=== PATIENT | female | born 1980 | race African-American/Black ===

== ENCOUNTER → 2016-02-16 | Outpatient (CLI) | payer OTHER ==
--- NOTE | 2016-02-16 15:36 | KCIC ---
Ultrasound Pelvis Indication:Reason For Study Reason: IRREGULAR MENSES USPELVIC / Spl. Instructions: / History: Technique: Multiple real-time grayscale images were obtained over the pelvis transabdominally and transvaginally. Color Doppler imaging was utilized. Findings: The uterus is normal in size measuring 8.0 x 3.8 x 6.3 cm. The endometrium is also within normal limits measuring 7 mm in thickness. There is a vascular solid nodular mass which appears to lie within the endometrial canal which could represent an endometrial polyp. This measures 6 millimeters in size. The right ovary measures 3.5 x 1.9 x 2.0cm. No abnormal right ovarian lesions are identified. Normal blood flow is identified. The left ovary measures 3.2 x 1.5 x 1.5cm. No abnormal left ovarian lesions are identified. Normal blood flow is identified. No pelvic free fluid is identified. Impression: Probable 6 millimeter endometrial polyp. Electronically signed by: Heron Falcon (Feb 16, 2016 15:36:03)
== END | disposition home or self-care (01) ==
LOC: KCIC US 13:54
PROVIDERS: ATTEND Obstetrics & Gynecology
DX: N92.6 Irregular menstruation, unspecified (principal)
CPT/HCPCS: 76830; 76856

== ENCOUNTER → 2020-01-29 | Outpatient (CLI) | payer OTHER ==
--- NOTE | 2020-01-29 10:51 | KCIC ---
MRI of the cervical spine without contrast 01/29/2020 CLINICAL HISTORY: Neck pain which radiates down both arms. TECHNIQUE: Unenhanced T1-weighted, T2-weighted and inversion recovery sagittal and gradient echo and T2-weighted axial images of the cervical spine were obtained. FINDINGS: Very mild lateral curvature of the cervical spine is seen convex to the left. There is reve rsal of the normal cervical lordosis. The morphology and signal characteristics of all of the disks o f the cervical spine are within normal limits. The marrow signal of the visualized bony structures is within normal limits. The cervical spinal cord is normal morphology, position, and signal characteri stics. On the axial images very mild degenerative changes are seen involving the cervical disc spaces consis ting of minimal generalized disc bulges and very mild degenerative changes involving the uncovertebra l and facet joints. These findings do not result in significant central spinal canal or neural forami nal stenosis. IMPRESSION: Very mild degenerative changes are seen involving the cervical spine as outlined above. T hese findings do not result in significant central spinal canal or neural foraminal stenosis at any l evel. Electronically signed by: Chi Javier MD (01/29/2020 10:49 AM) [place] [id number]
== END ==
LOC: KCIC MRI 09:30
PROVIDERS: ATTEND Physician Assistant Medical
DX: M47.812 Spondylosis without myelopathy or radiculopathy, cervical region (principal); M50.20 Other cervical disc displacement, unspecified cervical region
CPT/HCPCS: 72141